=== PATIENT | male | born 1995 | race Caucasian/White ===

== ENCOUNTER 2022-10-10 17:33 | Emergency (ER) | payer SELFPAY ==
[~2022-10-10] VITALS: Ht 180 cm; Wt 73.0 kg
[2022-10-10 17:40] VITALS: BP 156/99
[2022-10-10] MEDS ORDERED: ONDANSETRON 4 MG/2 ML (SDV) Z0FRAN IVP STA (17:46)
[2022-10-10] MEDS ORDERED: KETOROLAC 60 MG/2 ML VIAL IM STA (17:46)
[2022-10-10] MEDS ORDERED: NS IV 1000 ML 1,000 ML IV STA ×2 (17:46→18:26)
[2022-10-10 17:56] LABS: BASOPHILS # (AUTO) 0.1 10^3/uL (0.0-0.1); BASOPHILS % (AUTO) 1 % (0-10); EOSINOPHILS % (AUTO) 0 % (0-10); HEMATOCRIT 41 % (40-54); HEMOGLOBIN 14.1 g/dL (13.3-17.7); LYMPHOCYTES # (AUTO) 1.7 10^3/uL (1.0-4.0); LYMPHOCYTES % (AUTO) 19 % (12-44); MEAN CORPUSCULAR HEMOGLOBIN 30 pg (25-34); MEAN CORPUSCULAR HGB CONC 35 g/dL (32-36); MEAN CORPUSCULAR VOLUME 88 fL (80-99); MEAN PLATELET VOLUME 8.5 fL (9.0-12.2); MONOCYTES # (AUTO) 0.5 10^3/uL (0.0-1.0); MONOCYTES % (AUTO) 5 % (0-12); NEUTROPHILS # (AUTO) 6.9 10^3/uL (1.8-7.8); NEUTROPHILS % (AUTO) 74 % (42-75); PLATELET COUNT 301 10^3/uL (130-400); WHITE BLOOD COUNT 9.3 10^3/uL (4.3-11.0)
[2022-10-10 18:11] LABS: CLARITY,URINE SL CLOUDY; COLOR,URINE YELLOW; GLUCOSE, URINE (UA) NEGATIVE (NEGATIVE); KETONES,URINE 3+ (NEGATIVE); LEUKOCYTE ESTERASE ,URINE NEGATIVE (NEGATIVE); NITRITE,URINE NEGATIVE (NEGATIVE); PH,URINE 6.5 (5-9); PROTEIN,URINE NEGATIVE (NEGATIVE)
[2022-10-10 18:14] LABS: BILIRUBIN,URINE 1+ (NEGATIVE)
[2022-10-10 18:15] LABS: AMORPHOUS SEDIMENT,UR MOD AMOR URATES /LPF; BACTERIA,URINE TRACE /HPF; SQUAMOUS EPITHELIAL CELL,UR RARE /HPF
[2022-10-10 18:16] LABS: SODIUM 140 MMOL/L (135-145)
[2022-10-10 18:17] LABS: ALANINE AMINOTRANSFERASE 18 U/L (0-55); ALBUMIN 4.6 GM/DL (3.2-4.5); ALKALINE PHOSPHATASE 72 U/L (40-136); BUN/CREATININE RATIO 14; CALCIUM 9.6 MG/DL (8.5-10.1); CARBON DIOXIDE 21 MMOL/L (21-32); CHLORIDE 102 MMOL/L (98-107); CREATININE SERUM 1.06 MG/DL (0.60-1.30); GFR ESTIMATED 99; GLUCOSE 95 MG/DL (70-105); LIPASE 20 U/L (8-78); POTASSIUM 3.3 MMOL/L (3.6-5.0); TOTAL PROTEIN 6.7 GM/DL (6.4-8.2)
[2022-10-10 18:18] LABS: AMPHETAMINE SCREEN, URINE NEGATIVE (NEGATIVE); BARBITURATE SCREEN URINE NEGATIVE (NEGATIVE); BENZODIAZEPINES SCREEN URINE NEGATIVE (NEGATIVE); CANNABINOID SCREEN, URINE NEGATIVE (NEGATIVE); COCAINE SCREEN URINE NEGATIVE (NEGATIVE); METHADONE STAT NEGATIVE (NEGATIVE); OPIATE SCREEN URINE NEGATIVE (NEGATIVE); OXYCODONE STAT NEGATIVE (NEGATIVE); PROPOXYPHENE STAT NEGATIVE (NEGATIVE); TRICYCLIC ANTIDEPRESSANTS SCRE NEGATIVE (NEGATIVE)
[2022-10-10] MEDS ORDERED: ORPHENADRINE 60 MG/2 ML (NORFLEX) AMP (ED ONLY) IVP STA (18:26)
[2022-10-10] MEDS ORDERED: morphine INJ 10 MG/ML 1ML (SYR OR VIAL) IVP STA (18:26)
--- NOTE | 2022-10-10 18:33 | ED GU-Male ---
General Chief Complaint: - Reproductive Stated Complaint: LOWER BACK PAIN Nursing Triage Note: RIGHT SIDED FALNK AND LOWER BACK PAIN STARTED ABOUT 4 HOURS AGO. Source: patient History of Present Illness Date Seen by Provider: October 10, 2022 Time Seen by Provider: 17:40 Initial Comments 27-year-old male presenting with complaints of right-sided flank pain that started approximately 4 hours ago. He cannot find a comfortable position. He denies having pain like this previously. He had not taken anything for the pain before coming to the emergency department. He did have 1 episode of vomiting due to the pain. He denies having any pain with urination. He does report being constipated but having a bowel movement yesterday. He feels like he might be dehydrated as he does not drink much in the way of fluids. Timing/Duration: this afternoon Severity/Quality: severe, aching, sharp Location: right flank Radiation: right flank Activities at Onset: none Prior Genitourinary Problems: none Modifying Factors: Improves With Movement (feels a little better as he keeps moving. can not find a comfortable position) Associated Symptoms: No abdominal pain, No diaphoresis, No dysuria, No fever/chills; lower back pain; No mass; nausea/vomiting; No swelling, No syncope, No urinary frequency Allergies and Home Medications Allergies Coded Allergies: mirtazapine (Verified Allergy, Unknown, 10/10/22) Patient Home Medication List Home Medication List Reviewed: Yes Hydrocodone/Acetaminophen (Hydrocodone-Acetamin 5-325 mg) 5 Mg-325 Mg Tablet, 1 TAB PO Q4H PRN for PAIN SEVERE Prescribed by: LAITH MITCHELL on 10/10/22 185 Ondansetron (Ondansetron Odt) 4 Mg Tab.rapdis, 4 MG PO Q6H PRN for NAUSEA/VOMITING Prescribed by: LAITH MITCHELL on 10/10/22 184 Tamsulosin HCl (Flomax) 0.4 Mg Cap, 0.4 MG PO DAILY Prescribed by: LAITH MITCHELL on 10/10/22 184 Review of Systems Review of Systems Constitutional: No chills, No fever EENTM: no symptoms reported Respiratory: no symptoms reported Cardiovascular: no symptoms reported Gastrointestinal: see HPI Genitourinary: see HPI Musculoskeletal: see HPI Skin: no symptoms reported Psychiatric/Neurological: No Symptoms Reported Past Auohmcc-Kboctr-Iabefk Hx Patient Social History Tobacco Use?: Yes Tobacco type used: Cigarettes Smoking Status: Current Everyday Smoker Use of E-Cig and/or Vaping dev: No Substance use?: No Alcohol Use?: No Pt feels they are or have been: No Past Medical History Surgery/Hospitalization HX: [place] to body with prior skin grafts Physical Exam Vital Signs Vital Signs - First Documented 10/10/22 17:40 Temp 36.5 Pulse 93 Resp 16 B/P (MAP) 156/99 (118) Pulse Ox 100 O2 Delivery Room Air Capillary Refill : Less Than 3 Seconds Height, Weight, BMI Height: '" Weight: lbs. oz. kg; 22.00 BMI Method: General Appearance: WD/WN, moderate distress, other (disheveled and dirty) HEENT: PERRL/EOMI, pharynx normal Cardiovascular: normal peripheral pulses, regular rate, rhythm Respiratory: chest non-tender, lungs clear, normal breath sounds, no respiratory distress, no accessory muscle use Gastrointestinal: normal bowel sounds, non tender, soft, no pulsatile mass Back: no CVA tenderness, no vertebral tenderness Extremities: normal range of motion, non-tender, normal capillary refill Neurologic/Psychiatric: alert, oriented x 3 Skin: warm/dry Progress/Results/Core Measures Suspected Sepsis SIRS Temperature: Pulse: 93 Respiratory Rate: 16 Laboratory Tests 10/10/22 17:50: White Blood Count 9.3 Blood Pressure 156 /99 Mean: 118 Laboratory Tests 10/10/22 17:50: Creatinine 1.06, Platelet Count 301, Total Bilirubin 1.0 Results/Orders Lab Results Laboratory Tests Test 10/10/22 17:50 Range/Units White Blood Count 9.3 4.3-11.0 10^3/uL Red Blood Count 4.64 4.30-5.52 10^6/uL Hemoglobin 14.1 13.3-17.7 g/dL Hematocrit 41 40-54 % Mean Corpuscular Volume 88 80-99 fL Mean Corpuscular Hemoglobin 30 25-34 pg Mean Corpuscular Hemoglobin Concent 35 32-36 g/dL Red Cell Distribution Width 12.5 10.0-14.5 % Platelet Count 301 130-400 10^3/uL Mean Platelet Volume 8.5 L 9.0-12.2 fL Immature Granulocyte % (Auto) 0 % Neutrophils (%) (Auto) 74 42-75 % Lymphocytes (%) (Auto) 19 12-44 % Monocytes (%) (Auto) 5 0-12 % Eosinophils (%) (Auto) 0 0-10 % Basophils (%) (Auto) 1 0-10 % Neutrophils # (Auto) 6.9 1.8-7.8 10^3/uL Lymphocytes # (Auto) 1.7 1.0-4.0 10^3/uL Monocytes # (Auto) 0.5 0.0-1.0 10^3/uL Eosinophils # (Auto) 0.0 0.0-0.3 10^3/uL Basophils # (Auto) 0.1 0.0-0.1 10^3/uL Immature Granulocyte # (Auto) 0.0 0.0-0.1 10^3/uL Urine Color YELLOW Urine Clarity SL CLOUDY Urine pH 6.5 5-9 Urine Specific [place] >=1.030 1.016-1.022 Urine Protein NEGATIVE NEGATIVE Urine Glucose (UA) NEGATIVE NEGATIVE Urine Ketones 3+ H NEGATIVE Urine Nitrite NEGATIVE NEGATIVE Urine Bilirubin 1+ H NEGATIVE Urine Urobilinogen 0.2 < = 1.0 MG/DL Urine Leukocyte Esterase NEGATIVE NEGATIVE Urine RBC (Auto) 1+ H NEGATIVE Urine RBC 5-10 H /HPF Urine WBC 2-5 /HPF Urine Squamous Epithelial Cells RARE /HPF Urine Crystals PRESENT H /LPF Urine Amorphous Sediment MOD MATTHEW URATES H /LPF Urine Bacteria TRACE /HPF Urine Casts NONE /LPF Urine Mucus MODERATE H /LPF Urine Culture Indicated NO Sodium Level 140 135-145 MMOL/L Potassium Level 3.3 L 3.6-5.0 MMOL/L Chloride Level 102 98-107 MMOL/L Carbon Dioxide Level 21 21-32 MMOL/L Anion Gap 17 H 5-14 MMOL/L Blood Urea Nitrogen 15 7-18 MG/DL Creatinine 1.06 0.60-1.30 MG/DL Estimat Glomerular Filtration Rate 99 BUN/Creatinine Ratio 14 Glucose Level 95 70-105 MG/DL Calcium Level 9.6 8.5-10.1 MG/DL Corrected Calcium 8.5-10.1 MG/DL Total Bilirubin 1.0 0.1-1.0 MG/DL Aspartate Amino Transf (AST/SGOT) 20 5-34 U/L Alanine Aminotransferase (ALT/SGPT) 18 0-55 U/L Alkaline Phosphatase 72 40-136 U/L Total Protein 6.7 6.4-8.2 GM/DL Albumin 4.6 H 3.2-4.5 GM/DL Lipase 20 8-78 U/L Urine Opiates Screen NEGATIVE NEGATIVE Urine Oxycodone Screen NEGATIVE NEGATIVE Urine Methadone Screen NEGATIVE NEGATIVE Urine Propoxyphene Screen NEGATIVE NEGATIVE Urine Barbiturates Screen NEGATIVE NEGATIVE Ur Tricyclic Antidepressants Screen NEGATIVE NEGATIVE Urine Phencyclidine Screen NEGATIVE NEGATIVE Urine Amphetamines Screen NEGATIVE NEGATIVE Urine Methamphetamines Screen POSITIVE H NEGATIVE Urine Benzodiazepines Screen NEGATIVE NEGATIVE Urine Cocaine Screen NEGATIVE NEGATIVE Urine Cannabinoids Screen NEGATIVE NEGATIVE My Orders Orders - LAITH MITCHELL MD Comprehensive Metabolic Panel (10/10/22 17:41) Lipase (10/10/22 17:41) Ua Culture If Indicated (10/10/22 17:41) Ed Iv/Invasive Line Start (10/10/22 17:41) Cbc With Automated Diff (10/10/22 17:41) Ct Abdomen/Pelvis Wo (10/10/22 17:41) Ns Iv 1000 Ml (Sodium Chloride 0.9%) (10/10/22 17:46) Ketorolac Injection (Toradol Injection) (10/10/22 17:46) Ondansetron Injection (Zofran Injectio (10/10/22 17:46) Drug Screen Stat (Urine) (10/10/22 17:48) Ns Iv 1000 Ml (Sodium Chloride 0.9%) (10/10/22 18:26) Morphine Injection (Morphine Injection (10/10/22 18:26) Orphenadrine Inj (Ed Only) (Norflex Inje (10/10/22 18:26) Rx-Hydrocodone/Apap 5-325 Mg (Rx-Vicodin (10/10/22 19:00) Tamsulosin Capsule (Flomax Capsule) (10/10/22 18:54) Strain Urine (10/10/22 18:54) Rx-Hydrocodone/Apap 5-325 Mg (Rx-Vicodin (10/10/22 18:54) Medications Given in ED Current Medications Medications Dose Ordered Sig/Clive Route Start Time Stop Time Status Last Admin Dose Admin Acetaminophen/ Hydrocodone Bitart 1 ea STK-MED ONCE PO 10/10/22 18:54 10/10/22 18:57 DC 10/10/22 19:03 1 EA Vital Signs/I&O 10/10/22 17:40 Temp 36.5 Pulse 93 Resp 16 B/P (MAP) 156/99 (118) Pulse Ox 100 O2 Delivery Room Air Capillary Refill : Less Than 3 Seconds Blood Pressure Mean: 118 Progress Note #1: Progress Note Potential diagnosis of renal colic, kidney stone, diverticulitis, colitis, constipation, pyelonephritis. Obtain urinalysis and urine drug screen looking for signs of infection and hydration. Establish IV access and check complete blood count, comprehensive metabolic profile, lipase, urinalysis and urine drug screen. CT scan of the abdomen and pelvis without IV contrast to look for kidney stone or pathology to be causing his symptoms. Progress Note #2: Time: 18:22 Progress Note I reviewed the CT scan of the abdomen pelvis with IV contrast and felt that he had a 2 mm distal ureteral stone at the UVJ with hydroureter. He has white blood cell count of 9.3. His comprehensive metabolic profile did not show any acute significant abnormality and he had a creatinine of 1.06. His urinalysis did not show infection but was concentrated with greater than 1.030 specific gravity. He did have some blood in his urine. His urine drug screen was positive for methamphetamines. It is possible that this could be reason that he would be dehydrated and form a kidney stone. Encouraged not to use drugs but the patient denied using methamphetamines when directly asked. Counseled patient on findings and results and will discharge to home on hydrocodone/acetaminophen 5/325 mg pills 1 every 4 hours prn severe pain. Give Flomax 0.4 mg po x 1 here. He asked for something more for pain so I ordered Morphine 4 mg IV x 1. I also ordered an additional NS 1 Liter IVF bolus for additional hydration. 184 when the nurse went to check on him about the additional pain medicine he now reports that he does not have pain and the medicine had helped a lot. Thus the Morphine was not administered to him. Will order a take home pack of hydrocodone/acetaminophen 5/325 mg pills 1 every 4 hours prn severe pain since pharmacy will be closed by the time he leaves the ED. Additional script for Hydrocodone/APAP 5/325 mg pills every 4 hours sent to the pharmacy. Also sent script for Flomax 0.4 mg daily for 7 days for renal colic. Zofran ODT 4 mg every 6 hours as needed for nausea/vomiting. counseled on straining urine, pushing fluids, follow up with clinic and establish care for continued treatment. Diagnostic Imaging Diagonstic Imaging: CT Plain Films/CT/US/NM/MRI: abdomen, pelvis Comments [facility] [employer] [facility] [place], [place] NAME: MAZIN [facility]ON [facility] REC#: [id number] PT STATUS: REG ER : 1995 PHYSICIAN: LAITH MITCHELL MD ADMIT DATE: 10/10/22/ER FS Signed Date of Exam:10/10/22 CT ABDOMEN/PELVIS WO PROCEDURE: CT abdomen and pelvis without contrast. TECHNIQUE: Multiple contiguous axial images were obtained through the abdomen and pelvis without the use of intravenous contrast. Auto Exposure Controls were utilized during the CT exam to meet ALARA standards for radiation dose reduction. INDICATION: Right-sided flank pain that started this afternoon. COMPARISON: None. FINDINGS: 0.2 cm obstructing kidney stone at the right ureterovesicular junction with mild to moderate right hydronephrosis. No other kidney stones are identified.The left kidney demonstrates a few small renal cysts. Urinary bladder is normal. The liver, adrenal glands, spleen, and pancreas are normal. Gallbladder is normal. Bowel is normal. Normal appendix. The aorta and IVC are normal. No abdominal pelvic lymphadenopathy. Impression: 0.2 cm obstructing kidney stone at the right ureterovesicular junction with mild to moderate right hydronephrosis. No other kidney stones are identified. Dictated by: Dictated on workstation # [id number] Dict: 10/10/221832 Trans: 10/10/221835 [facility] [id number] Interpreted by: PIPO MOLINA DO Electronically signed by: PIPO MOLINA DO 10/10/221835 Reviewed: Reviewed by Me (I reviewed radiologist report at 1900) Departure Impression Primary Impression: Kidney stone on right side Additional Impressions: Calculus of distal right ureter Renal colic on right side Disposition: HOME, SELF-CARE Condition: Stable Departure-Patient Inst. Decision time for Depature: 18:47 Referrals: [facility] [place] Patient Instructions: Kidney Stone, Adult ED, Kidney Stone Diet Add. Discharge Instructions: Stay well-hydrated and drink plenty of fluids to help with a kidney stone pass. Strain your urine for the next few days or at least until you see a kidney stone pass. It would look like a chad of pepper or tiny grain of sand. You can follow-up with [facility] and they could help with medical care and prescriptions as a extra funding to see people that do not have insurance. They also see people with insurance. Their phone number is [phone]. All discharge instructions reviewed with patient and/or family. Voiced understanding. Scripts Tamsulosin HCl (Flomax) 0.4 Mg Cap 0.4 MG PO DAILY for renal colic for 7 Days, #7 CAP 0 Refills Prov: LAITH MITCHELL MD 10/10/22 Ondansetron (Ondansetron Odt) 4 Mg Tab.rapdis 4 MG PO Q6H PRN for NAUSEA/VOMITING for 3 Days, #12 TAB 0 Refills Prov: LAITH MITCHELL MD 10/10/22 Hydrocodone/Acetaminophen (Hydrocodone-Acetamin 5-325 mg) 5 Mg-325 Mg Tablet 1 TAB PO Q4H PRN for PAIN SEVERE for 3 Days, #18 TAB 0 Refills Prov: LAITH MITCHELL MD 10/10/22 LAITH MITCHELL MD October 10, 2022 18:33
--- NOTE | 2022-10-10 18:38 | Diagnostic Imaging Report ---
PROCEDURE: CT abdomen and pelvis without contrast. TECHNIQUE: Multiple contiguous axial images were obtained through the abdomen and pelvis without the use of intravenous contrast. Auto Exposure Controls were utilized during the CT exam to meet ALARA standards for radiation dose reduction. INDICATION: Right-sided flank pain that started this afternoon. COMPARISON: None. FINDINGS: 0.2 cm obstructing kidney stone at the right ureterovesicular junction with mild to moderate right hydronephrosis. No other kidney stones are identified.The left kidney demonstrates a few small renal cysts. Urinary bladder is normal. The liver, adrenal glands, spleen, and pancreas are normal. Gallbladder is normal. Bowel is normal. Normal appendix. The aorta and IVC are normal. No abdominal pelvic lymphadenopathy. Impression: 0.2 cm obstructing kidney stone at the right ureterovesicular junction with mild to moderate right hydronephrosis. No other kidney stones are identified. Dictated by: Dictated on workstation # [id number]
[2022-10-10] MEDS ORDERED: ACHD5005 PO (18:49)
[2022-10-10] MEDS ORDERED: TMSL.4C PO (18:49)
[2022-10-10] MEDS ORDERED: ONDA4TAB11 PO (18:49)
[2022-10-10] MEDS ORDERED: TAMSULOSIN 0.4 MG (FLOMAX) CAP PO STA (18:54)
== END 2022-10-10 19:30 | disposition home or self-care (01) ==
LOC: EDUNIT# 17:33 → ER FS 17:37 → EDSEX 17:37 → ER FS 19:30
DX: N13.2 Hydronephrosis with renal and ureteral calculous obstruction (principal); F17.210 Nicotine dependence, cigarettes, uncomplicated; Z28.310 Unvaccinated for COVID-19
CPT/HCPCS: 36415; 74176; 80053; 80306; 81000; 83690; 85025